=== PATIENT | female | born 2000 | race African-American/Black ===

== ENCOUNTER 2023-10-04 08:43 | Emergency (ER) | payer OTHER ==
[~2023-10-04] VITALS: Ht 157.5 cm; Wt 61.4 kg
[2023-10-04] MEDS ORDERED: MONI4CRE3 PV (08:59)
[2023-10-04 13:23] LABS: Trichomonas vaginalis (AMP) NOT DETECTED (NEGATIVE)
[2023-10-04 13:47] LABS: GC DNA AMPLIFICATION NEGATIVE (NEGATIVE)
[2023-10-04] MEDS ORDERED: METR-265 PO (14:20)
[2023-10-04 14:28] VITALS: BP 125/78; TEMP 96.9; O2SAT 100
== END 2023-10-04 14:29 | disposition home or self-care (01) ==
LOC: M ED 08:43
DX: N76.0 Acute vaginitis (principal); Z79.2 Long term (current) use of antibiotics; Z79.899 Other long term (current) drug therapy